=== PATIENT | male | born 1960 | race Caucasian/White ===

== ENCOUNTER → 2018-01-20 | Day surgery (SDC) | payer OTHER ==
--- NOTE | 2018-01-18 11:50 | History & Physical Pre-Op ---
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 The patient has undergone an extended course of the fifth care, include in shoe gear and activity modification, rest, immobilization and local steroid injections. None of this is yielded him any significant relief. The patient presents today for preoperative surgical consultation. Allergies/Medications Allergies: Coded Allergies: No Known Allergies (01/15/18) Home Med list Atorvastatin Calcium 20 MG TABLET 1 TAB PO DAILY CHOLESTEROL (Reported) Tamsulosin HCl (Flomax) 0.4 MG CAP.ER.24H 1 CAP PO DAILY (Reported) Past History Medical History Cardiovascular: hyperlipidemia Surgical History Pertinent Surgical History: non-contributory Review of Systems Review of Systems: Unremarkable except for that noted in history of present illness Exam & Diagnostic Data Physical Exam: Lungs clear bilaterally. Heart sounds rate and rhythm regular. Lower extremity physical exam demonstrates intact pedal pulses bilaterally. Both dorsalis pedis and posterior tibial arteries are palpable bilaterally. Patient noted to have a positive Taya sign to the third interspace left foot. Assessment/Plan Assessment/Plan: Painful neuroma left foot. A lengthy discussion reviewing both surgical and conservative options was held the patient at bedside and the patient elected to go forward with surgery despite the risks. As Ranked By This Provider Problem List: 1. Lesion of left plantar nerve Attending MD Review Statement Attending Statement Attending MD Statement: examined this patient
[~2018-01-20] VITALS: Ht 182.9 cm; Wt 77.1 kg
[~2018-01-20] MED LIST: ATORVASTATIN CA20 M1 PO; FLOMAX0.4 M1 PO
--- NOTE | 2018-01-20 09:05 | Operative Report ---
Operative/Inv Procedure Report Surgery Date: 01/20/18 Name of Procedure: 1 Excision of neuroma left foot Pre-Operative Diagnosis: 1 Painful neuroma left foot Post-Operative Diagnosis: The same Estimated Blood Loss: scant Surgeon/Hoop Flaring Machine Operator: Dipak GARCIA,Patrick Townsend DPM Anesthesia: moderate sedation, block Operative/Procedure Note Note: After obtaining informed consent the patient was brought to the operating room and placed on the operating table in supine position. The patient was securely fastened to the operating table utilizing safety belt. After administration of IV sedation, 10 mL of 0.5% Marcaine plain was infiltrated about the patient's left ankle. A well-padded ankle tourniquetabout the patient's left lower extremity. 2 g of Ancef were delivered intravenously times one dose. The left foot and ankle were scrubbed, prepped and draped in usual aseptic manner. The left lower extremity was elevated to examine to limb, at which point the ankle tourniquet was inflated 250 mmHg. Attention directed dorsal aspect of the left third interspace, where a 4 cm linear incision was made overlying the interspaces. Dissection was then carried down to the digital branches of the neuroma which were freed. The body of the neuroma was identified and distracted distally. It was then cut proximally and passed from the operative field. He was sent as specimen for pathologic inspection. The open wound was then irrigated with copious Svensson normal sterile saline. The deep tissues reports a 4-0 Vicryl and the skin edges reapproximated 4-0 nylon. Incision was dressed with Xeroform, 4 x 4's, Kerlix and an Jose wrap. The patient was noted to tolerate both procedure and anesthesia well and the patient was transported from the operating room to recovery with vital signs stable best assess intact all digits left foot.
== END ==
LOC: STS 01:11
DX: G57.62 Lesion of plantar nerve, left lower limb (principal)
CPT/HCPCS: J0690; J1100; J2001; J2250; J3490